=== PATIENT | female | born 2000 | race Hispanic/Latino ===

== ENCOUNTER 2024-01-02 12:03 | Inpatient (IN) | payer MEDICAID ==
[~2024-01-02] VITALS: Ht 170.2 cm; Wt 59.4 kg
[2024-01-02 12:47] LABS: APPEARANCE,URINE CLOUDY (CLEAR); BILIRUBIN,URINE NEGATIVE (NEGATIVE); COLOR,URINE YELLOW (YELLOW); GLUCOSE, URINE (UA) 50 mg/dL (NEGATIVE); KETONES,URINE NEGATIVE (NEGATIVE); LEUKOCYTE ESTERASE ,URINE 250 Leu/uL (NEGATIVE); NITRATE,URINE NEGATIVE (NEGATIVE); OCCULT BLOOD,URINE NEGATIVE (NEGATIVE); PH,URINE 6.5 (5.0-8.0); PROTEIN,URINE 30 mg/dL (NEGATIVE); UROBILINOGEN,URINE 3 mg/dL (0.2-1.0)
[2024-01-02 12:55] LABS: ADD UA MICROSCOPIC YES
[2024-01-02 13:00] LABS: BACTERIA,URINE RARE /HPF (None Seen); MUCUS,URINE RARE LPF (None Seen); RBC,URINE 0-1 /HPF (0-1); SQUAMOUS EPITHELIAL CELL,UR MOD /HPF (0-2); WBC,URINE 26-50 /HPF (0-1)
[2024-01-02] MEDS: LACTATED RINGERS 500 ML 500 ML IV PRN (13:35)
[2024-01-02 13:47] LABS: HEMATOCRIT 36.8 % (36-48); MEAN CORPUSCULAR HEMOGLOBIN 32.7 pg (27.0-33.0); MEAN CORPUSCULAR HGB CONC 34.2 g/dL (32.0-36.0); MEAN CORPUSCULAR VOLUME 95.6 fL (80-100); RED BLOOD CELL COUNT(AUTO) 3.85 MIL/uL (4.00-5.50); RED CELL DISTRIBUTION WIDTH 13.7 % (11.0-15.5); WHITE BLOOD COUNT (AUTO) 6.8 K/uL (4.8-10.8)
[2024-01-02] MEDS: AMPICILLIN 2GM+NS 100ML 100 ML IV ONE (13:56)
[2024-01-02] MEDS ORDERED: ePHEDrine SULFate 50 MG/ML AMPULE IVP PRN (14:00)
[2024-01-02] MEDS ORDERED: NALoxone HCL 0.4 MG/1 ML ML IV PRN (14:00)
[2024-01-02] MEDS ORDERED: PROMETHAZINE HCL 25 MG/ML 1ML AMPULE IM PRN (14:00)
[2024-01-02] MEDS ORDERED: MEPERIDINE-PF 50 MG/ML SYG IVP PRN (14:00)
[2024-01-02 14:30] LABS: HIV 1&2 ANTIBODY Non-Reactive (Negative); HIV-1 p24 Antigen Non-Reactive (Negative)
[2024-01-02 16:35] LABS: AMPHET/METH SCREEN,URINE NEGATIVE (NEGATIVE); BARBITURATE SCREEN, URINE NEGATIVE (NEGATIVE); BENZODIAZEPINES SCREEN,URINE NEGATIVE (NEGATIVE); CANNABINOID SCREEN,URINE NEGATIVE (NEGATIVE); COCAINE SCREEN,URINE NEGATIVE (NEGATIVE); OPIATE SCREEN,URINE NEGATIVE (NEGATIVE); PHENCYCLIDINE SCREEN,URINE NEGATIVE (NEGATIVE)
[2024-01-02] MEDS: AMPICILLIN 1GM+NS 50ML 50 ML IV SCH (17:54)
[2024-01-03] MEDS ORDERED: MISOPROSTOL 200 MCG TABLET ONE (00:17)
[2024-01-03] MEDS: OXYTOCIN-LR 30 UNITS/500ML 500 ML IV SCH ×2 (02:32→06:40)
[2024-01-03] MEDS: LIDOCAINE HCL 400MG/20ML VIAL ONE (03:25)
[2024-01-03] MEDS ORDERED: acetaMINOPHEN WITH coDEINE 1 TAB TAB PO PRN (04:30)
[2024-01-03] MEDS ORDERED: MEASLES/MUMPS/RUBELLA VACCINE, LIVE 0.5 ML/VIAL SQ PRN (04:30)
[2024-01-03] MEDS ORDERED: acetaMINOPHEN 325 MG TAB PO PRN (04:30)
[2024-01-03 07:50] VITALS: BP 105/63; PULSE 73; RESP 18; TEMP 98.5
[2024-01-03] MEDS: IBUPROFEN 600 MG TABLET PO PRN (08:59)
[2024-01-03] MEDS: doCUSate SODIUM 100 MG CAP PO SCH (09:38)
[2024-01-03] MEDS ORDERED: PREN1TAB80 PO (11:54)
[2024-01-03 12:15] VITALS: BP 106/64; PULSE 64; RESP 18; TEMP 98.3
[2024-01-03] MEDS: LANOLIN 30GM OINTMENT TP PRN (12:20)
[2024-01-03] MEDS: BENZOCAINE/LANOLIN/ALOE VERA 60 ML AEROSOL TP PRN (12:20)
[2024-01-03] MEDS: WITCH HAZEL 1 PAD TP PRN (12:20)
[2024-01-03] MEDS: DIPH,PERTUSS(ACELL),TET VAC/PF 0.5 ML VIAL IM PRN (12:22)
[2024-01-03 16:05] VITALS: BP 97/60; PULSE 75; RESP 18; TEMP 98.1
[2024-01-03 20:05] VITALS: BP 114/66; PULSE 69; RESP 20; TEMP 97.5
[2024-01-04 00:10] VITALS: BP 111/78; PULSE 82; RESP 20; TEMP 97.5
[2024-01-04 04:00] VITALS: BP 112/65; PULSE 64; RESP 20; TEMP 97.8
[2024-01-04] MEDS ORDERED: FLU VACC TS2024-25(6MOS UP)/PF 45 MCG/0.5 ML ML IM ONE (07:00)
[2024-01-04 07:15] VITALS: BP 98/62; PULSE 66; RESP 18; TEMP 97.9
[2024-01-04 08:15] LABS: HEMATOCRIT 36.1 % (36-48); MEAN CORPUSCULAR HEMOGLOBIN 32.9 pg (27.0-33.0); MEAN CORPUSCULAR HGB CONC 33.2 g/dL (32.0-36.0); MEAN CORPUSCULAR VOLUME 98.9 fL (80-100); RED BLOOD CELL COUNT(AUTO) 3.65 MIL/uL (4.00-5.50); RED CELL DISTRIBUTION WIDTH 13.7 % (11.0-15.5)
[2024-01-04 11:20] VITALS: BP 103/71; PULSE 81; RESP 18; TEMP 98
[2024-01-04 12:02] LABS: RAPID PLASMA REAGIN NONREACTIVE (NONREACTIVE)
== END 2024-01-04 13:07 | disposition home or self-care (01) | DRG 560 ==
LOC: EDH 12:03 → OBSVTOIN 12:24 → LDH 12:24 → WSH 01-03 06:18
PROVIDERS: ADMIT Obstetrics & Gynecology; ATTEND Obstetrics & Gynecology
PROC: 10E0XZZ Delivery of Products of Conception, External Approach (ICD-10-PCS; principal; 2024-01-03)
PROC: 0KQM0ZZ Repair Perineum Muscle, Open Approach (ICD-10-PCS; 2024-01-03)
PROC: 3E0R3BZ Introduction of Anesthetic Agent into Spinal Canal, Percutaneous Approach (ICD-10-PCS; 2024-01-03)
PROC: 00HU33Z Insertion of Infusion Device into Spinal Canal, Percutaneous Approach (ICD-10-PCS; 2024-01-03)
PROC: 10907ZC Drainage of Amniotic Fluid, Therapeutic from Products of Conception, Via Natural or Artificial Opening (ICD-10-PCS; 2024-01-03)
DX: O99.824 Streptococcus B carrier state complicating childbirth (principal); Z37.0 Single live birth; O70.1 Second degree perineal laceration during delivery; Z3A.40 40 weeks gestation of pregnancy
CPT/HCPCS: 36415; 76805; 80305; 81001; 85027; 86592; 86701; 86850; 86900; 86901; 87086; 87340; 87390; 90715; 93005; A4314; A4351; G0378; J0290; J2795; J3490; Q2035; Q2038